=== PATIENT | female | born 1950 ===

== ENCOUNTER 2016-08-08 14:00 | Outpatient (RCR) | payer MEDICARE | END 2016-08-12 | disposition home or self-care (01) | LOC: PTY 14:00 | DX: M76.72 Peroneal tendinitis, left leg (principal); M67.00 Short Achilles tendon (acquired), unspecified ankle | CPT/HCPCS: 97110; 97140; 97162; G0283; G8978; G8979 ==

== ENCOUNTER 2016-08-15 11:00 | Outpatient (RCR) | payer MEDICARE | END 2016-09-12 | disposition home or self-care (01) | LOC: PTY 11:00 | DX: M76.72 Peroneal tendinitis, left leg (principal); M67.00 Short Achilles tendon (acquired), unspecified ankle | CPT/HCPCS: 97035; 97110; 97140; G0283 ==